=== PATIENT | male | born 1950 | race Caucasian/White ===

== ENCOUNTER 2016-07-16 06:31 | Observation (INO) | payer OTHER, BC ==
[2016-07-11 09:40] LABS: HEMATOCRIT 43.1 % (40.0-51.0); HEMOGLOBIN 15.7 g/dL (13.6-17.8)
[2016-07-11 09:50] LABS: BUN (BLOOD UREA NITROGEN) 10 MG/DL (6-23); CALCIUM, SERUM 8.9 MG/DL (8.5-10.4); CHLORIDE, SERUM 106 MMOL/L (96-112); CO2 (CARBON DIOXIDE) 30 MMOL/L (24-34); CREATININE 0.85 MG/DL (0.70-1.30); GFR AFRICAN AMERICAN 107 ML/MIN (>=60); GFR NON AFRICAN AMERICAN 92 ML/MIN (>=60); SODIUM, SERUM 140 MMOL/L (135-148)
[2016-07-11 09:51] LABS: GLUCOSE, SERUM 91 MG/DL (60-99)
--- NOTE | ~2016-07-16 | OP ---
Record Of Operation [facility] [address] [place]. [address] NAME: GRETTA CAMPA : 52 STATUS : ADM IN PAT#: [id number] AGE: 65 ADM/REG DATE : 07/16/16 MR#: [id number] REPORT SERV DATE: 07/16/16 DICTATED BY: FABIAN PERES III DATE: 07/16/16 REPORT STATUS : Draft TRANSCRIBED BY: MODL DATE: 07/16/16 DATE OF PROCEDURE: 07/16/2016 PREOPERATIVE DIAGNOSIS: Bladder outlet obstruction. POSTOPERATIVE DIAGNOSIS: Bladder outlet obstruction. PROCEDURE: Transurethral resection of the prostate gland. ANESTHESIA: General. SPECIMENS: Prostate chips. BLOOD LOSS: 25 mL. DRAINS: A 24-Tongan three-way Molina catheter with a 30 mL balloon. INDICATION: Mr. Campa is a 65-year-old white male, in urinary retention with postvoid residuals of 700 mL. He has been evaluated. 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 Options have been discussed. He wishes to proceed with transurethral resection of the prostate gland. He has been informed about the risks of bleeding, infection, and also he most likely will have a retrograde ejaculation postoperatively. PROCEDURE IN DETAIL: After consent was obtained, the patient was identified. He was taken to the OR and put to sleep. He was positioned in the low lithotomy position, and prepped and draped in usual fashion. The 22-Tongan cystoscope was made ready and advanced along the course of urethra into the bladder. Pictures were taken of the obstructing prostate gland. The bladder was then drained. There was debris consistent with urinary retention. The bladder wall was heavily trabeculated, but there were no tumors or stones noted. The cystoscope was then removed and the Edward sounds were used to dilate the urethra to 28- Tongan. The 26-Tongan resectoscope was then inserted. Using the loop, transurethral resection of the prostate gland was performed, first taking down the bladder neck to the circular fibers, then the lateral lobes followed by the floor and roof of the prostatic urethra. The Strikeface evacuator was used to evacuate the prostate chips. The rollerball was then used to cauterize the bleeding points in the prostatic urethra. The bladder was reinspected. There was 1 chip remaining. This was removed with the loop. The resectoscope was then removed, and a 24-Tongan three-way Molina catheter was inserted using a catheter guide. The balloon was inflated to 30 mL and it was pulled down to the bladder neck, and bladder irrigation was begun which cleared nicely. The patient was then awakened and taken to recovery in stable condition. PH/MODL Record Of [place] [address] [address] [address] NAME: GRETTA CAMPA : 52 STATUS : ADM IN PAT#: [id number] AGE: 65 ADM/REG DATE : 07/16/16 MR#: [id number] REPORT SERV DATE: 07/16/16 DICTATED BY: FABIAN PERES III DATE: 07/16/16 REPORT STATUS : Draft TRANSCRIBED BY: MODJerald DATE: 07/16/16 Fabian Peres III, M.D. / [id number] CC: Fabian Peres III, M.D.
[~2016-07-16 06:31] MED LIST: ACET500CAP PO; ASAB PO; ATACAND HCT1 TA1 PO; ATACAND32 MG PO; PRAVAC PO; RAPAFLO4 MG PO; ZYRTEC ALLGY10 MG PO
[2016-07-16 09:38] LABS: HEMATOCRIT 42.3 % (40.0-51.0); HEMOGLOBIN 15.5 g/dL (13.6-17.8)
[2016-07-17 05:33] LABS: HEMATOCRIT 41.6 % (40.0-51.0); HEMOGLOBIN 14.7 g/dL (13.6-17.8)
[2016-07-19] MEDS ORDERED: PCET PO (13:09)
== END 2016-07-19 16:48 | disposition home or self-care (01) ==
LOC: SDC/OF 06:31 → PACU 09:34 → 4SO 10:37
PROVIDERS: Urology
PROC: 0VT08ZZ Resection of Prostate, Via Natural or Artificial Opening Endoscopic (ICD-10-PCS; principal; 2016-07-16 07:45)
DX: N40.1 Benign prostatic hyperplasia with lower urinary tract symptoms (principal); N41.0 Acute prostatitis; N13.8 Other obstructive and reflux uropathy; N39.0 Urinary tract infection, site not specified; R33.8 Other retention of urine; R39.12 Poor urinary stream; I10 Essential (primary) hypertension; Z79.82 Long term (current) use of aspirin; Z79.899 Other long term (current) drug therapy; Z98.890 Other specified postprocedural states; Z80.0 Family history of malignant neoplasm of digestive organs; Z82.49 Family history of ischemic heart disease and other diseases of the circulatory system; Z86.718 Personal history of other venous thrombosis and embolism
CPT/HCPCS: 80048; 84295; 85014; 85018; 88305; 93005; A9270-GY; G0378; J2405; J3010